=== PATIENT | female | born 1995 | race Two or more races ===

== ENCOUNTER 2017-04-20 11:12 | Emergency (ER) | payer SELFPAY ==
[2017-04-20 11:20] VITALS: PULSE 91; BMI 19.3
--- NOTE | 2017-04-20 11:47 | PDOC ---
History of Present Illness - General History Source: Patient Exam Limitations: No Limitations - History of Present Illness Initial Comments: 04/20/17 12:21 The patient is a 22 year old female presenting with her mother, with no significant past medical history, who presents to the emergency department with abdominal pain, breast pain, back pain, nausea headache and fever for the past 6 days. She describes her abdominal pain as mild, without radiation or modifying factors. She describes her breast pain as a bilateral and mild, without radiation or modifying factors. She states that she is unaware if she could be or not. The patient denies chest pain, shortness of breath, and dizziness. Denies chills , vomit, diarrhea and constipation. Denies dysuria, frequency, urgency and hematuria. LMP: Last month Allergies: Aspirin Past surgical history: None reported Social history: No alcohol, tobacco or drug use reported <Cliff Peraza - Last Filed: 04/20/17 12:21> <Jailene Phillip - Last Filed: 04/20/17 16:49> - General Chief Complaint: Pain Stated Complaint: FEVER, PAIN/ ABD, HEAD Time Seen by Provider: 04/20/17 11:32 Past History <Cliff Peraza - Last Filed: 04/20/17 12:21> - Past Medical History Other medical history: none - Psycho/Social/Smoking Cessation Hx Anxiety: No Suicidal Ideation: No Smoking History: Never smoked Have you smoked in the past 12 months: No Information on smoking cessation initiated: No Hx Alcohol Use: No Drug/Substance Use Hx: No Substance Use Type: None <Jailene Phillip - Last Filed: 04/20/17 16:49> - Past Medical History Allergies/Adverse Reactions: Allergies Allergy/AdvReac Type Severity Reaction Status Date / Time aspirin Allergy Verified 04/20/17 11:16 Home Medications: Ambulatory Orders Cephalexin Monohydrate [Keflex -] 500 mg PO BID #14 capsule 04/20/17 Review of Systems - Review of Systems Able to Perform ROS?: Yes Comments:: 04/20/17 12:21 GENERAL/CONSTITUTIONAL: (+) Fever. No chills. No weakness. HEAD, EYES, EARS, NOSE AND THROAT: No change in vision. No ear pain or discharge. No sore throat. CARDIOVASCULAR: No chest pain or shortness of breath RESPIRATORY: No cough, wheezing, or hemoptysis. GASTROINTESTINAL: (+) Nausea, abdominal pain. No vomiting, diarrhea or constipation. GENITOURINARY: No dysuria, frequency, or change in urination. MUSCULOSKELETAL: (+) Back pain. No joint or muscle swelling or pain. No neck pain. SKIN: No rash NEUROLOGIC: (+) Headache. No vertigo, loss of consciousness, or change in strength/sensation. ENDOCRINE: No increased thirst. No abnormal weight change HEMATOLOGIC/LYMPHATIC: No anemia, easy bleeding, or history of blood clots. ALLERGIC/IMMUNOLOGIC: No hives or skin allergy. <Cliff Peraza - Last Filed: 04/20/17 12:21> *Physical Exam - Vital Signs Last Vital Signs Temp Pulse Resp BP Pulse Ox 97.8 F 91 H 18 112/54 100 04/20/17 11:17 04/20/17 11:17 04/20/17 11:17 04/20/17 11:17 04/20/17 11:17 - Physical Exam Comments: 04/20/17 12:22 GENERAL: Awake, alert, and fully oriented, in no acute distress HEAD: No signs of trauma, normocephalic, atraumatic EYES: PERRLA, EOMI, sclera anicteric, conjunctiva clear ENT: Auricles normal inspection, hearing grossly normal, nares patent, oropharynx clear without exudates. Moist mucosa NECK: Normal ROM, supple, no lymphadenopathy, JVD, or masses LUNGS: No distress, speaks full sentences, clear to auscultation bilaterally HEART: Regular rate and rhythm, normal S1 and S2, no murmurs, rubs or gallops, peripheral pulses normal and equal bilaterally. ABDOMEN: Soft, nontender, normoactive bowel sounds. No guarding, no rebound. No masses EXTREMITIES: Normal inspection, Normal range of motion, no edema. No clubbing or cyanosis. NEUROLOGICAL: Cranial nerves II through XII grossly intact. Normal speech, normal gait, no focal sensorimotor deficits SKIN: Warm, Dry, normal turgor, no rashes or lesions noted. <Cliff Peraza - Last Filed: 04/20/17 12:21> - Vital Signs Last Vital Signs Temp Pulse Resp BP Pulse Ox 97.8 F 91 H 18 112/54 100 04/20/17 11:17 04/20/17 11:17 04/20/17 11:17 04/20/17 11:17 04/20/17 11:17 <Jailene Phillip - Last Filed: 04/20/17 16:49> ED Treatment Course - ADDITIONAL ORDERS Additional order review: Laboratory Results 04/20/17 11:58 Urine Color Yellow Urine Appearance Slcloudy Urine pH 6.0 Urine Protein Negative Urine Glucose (UA) Negative Urine Ketones Negative Urine Blood 2+ H Urine Nitrite Positive Urine Bilirubin Negative Urine Urobilinogen Negative Ur Leukocyte Esterase Trace H Urine RBC 3 Urine WBC 4 Ur Epithelial Cells Few Urine Bacteria Rare Urine Mucus Rare Urine HCG, Qual Positive <Cliff Peraza - Last Filed: 04/20/17 12:21> - LABORATORY CBC & Chemistry Diagram: 04/20/17 12:55 04/20/17 12:55 <Jailene Phillip - Last Filed: 04/20/17 16:49> Medical Decision Making - Medical Decision Making 04/20/17 16:49 Sono results d/w patient at bedside. The breast changes are likely hormonal changes associated with . Sono shows viable IUP with normal FHR. Stable for DC home. Will treat for UTI based on the positive nitrite in urine. <Jailene Phillip - Last Filed: 04/20/17 16:49> *DC/Admit/Observation/Transfer - Attestations Scribe Attestion: 04/20/17 12:22 Documentation prepared by Cliff Peraza, acting as biomedical equipment technician for Jailene Phillip MD <Cliff Peraza - Last Filed: 04/20/17 12:21> - Discharge Dispostion Admit: No <Jailene Phillip - Last Filed: 04/20/17 16:49> Diagnosis at time of Disposition: UTI (urinary tract infection) Qualifiers: Urinary tract infection type: acute cystitis Hematuria presence: without hematuria Qualified Code(s): N30.00 - Acute cystitis without hematuria Qualifiers: Weeks of gestation: less than 8 weeks Qualified Code(s): Z3A.01 - Less than 8 weeks gestation of - Discharge Dispostion Disposition: HOME Condition at time of disposition: Stable - Prescriptions Prescriptions: Cephalexin Monohydrate [Keflex -] 500 mg PO BID #14 capsule - Referrals Referrals: Rinku Layton MD [Staff Physician] - - Patient Instructions Printed Discharge Instructions: DI for Urinary Tract Infection (UTI), DI for -- Discomforts and Remedies Additional Instructions: MARGARET ANASTACIA WYTAT PUEDE ANG ACETAMINOFINO. NO ANG IBUPROFEN.
[2017-04-20 12:03] LABS: URINE APPEARANCE SLCLOUDY; URINE BILIRUBIN NEGATIVE (NEGATIVE); URINE COLOR YELLOW; URINE GLUCOSE (UA) NEGATIVE (NEGATIVE); URINE KETONE NEGATIVE (NEGATIVE); URINE NITRITE POSITIVE (NEGATIVE); URINE PROTEIN NEGATIVE (NEGATIVE); URINE UROBILINOGEN NEGATIVE E.U./dl (0.2-1.0)
[2017-04-20 12:08] LABS: URINE BLOOD 2+ (NEGATIVE); URINE LEUK ESTERASE TRACE (NEGATIVE)
[2017-04-20 12:17] LABS: URINE BACTERIA RARE /hpf (NONE SEEN); URINE MUCUS RARE; URINE RBC 3 /hpf (0-3); URINE WBC 4 /hpf (3-5)
[2017-04-20 13:01] LABS: BASOPHIL 0.5 % (0-2.0); EOSINOPHIL 0.6 % (0-4.5); MCHC 34.3 g/dl (32.0-36.0); MEAN CELL VOLUME 90.5 fl (80-96); MEAN PLT VOLUME 8.2 fl (7.5-11.1); NEUTROPHILS 58.6 % (42.8-82.8); PLATELET COUNT 253 K/MM3 (134-434); RDW 11.9 % (11.6-15.6); WHITE BLOOD COUNT 6.5 K/mm3 (4.0-10.0)
[2017-04-20 13:25] LABS: ALBUMIN 4.1 g/dl (3.4-5.0); ANION GAP 8 (8-16); BILIRUBIN,TOTAL 0.8 mg/dL (0.2-1.0); CALCIUM 8.5 mg/dL (8.5-10.1); CO2 27 mmol/L (21-32); CREATININE 0.6 mg/dL (0.55-1.02); GLUCOSE,RANDOM 80 mg/dL (74-106); SGPT/ALT 17 U/L (12-78)
[2017-04-20 13:40] LABS: ALK PHOS 29 U/L (45-117)
[2017-04-20 15:40] LABS: SGOT/AST 23 U/L (15-37)
[2017-04-20] MEDS ORDERED: CEPHALEXIN MONOHYDRATE 500 MG CAPSULE (UD) PO ONE (16:07)
[2017-04-20] MEDS ORDERED: CEPHALEXIN MONOHYDRATE 250 MG CAPSULE (FP) ONE (16:17)
[2017-04-20 16:49] VITALS: BP 116/70; TEMP 98.5
== END 2017-04-20 16:49 | disposition home or self-care (01) ==
LOC: JER 11:12
DX: O26.891 Other specified pregnancy related conditions, first trimester (principal); N30.00 Acute cystitis without hematuria; Z3A.01 Less than 8 weeks gestation of pregnancy
CPT/HCPCS: 36415; 76641-TC-50; 76817-TC; 80053; 81003; 81015; 84702; 84703; 85025; 99283-25